=== PATIENT | male | born 1985 | race Caucasian/White ===

== ENCOUNTER 2019-02-02 16:39 | Emergency (ER) | payer OTHER ==
[~2019-02-02] VITALS: Ht 170.2 cm; Wt 90.7 kg
[2019-02-02 18:00] VITALS: BP 138/78
[2019-02-02] MEDS ORDERED: NAPROXEN 500 MG TABLET PO STA (18:32)
--- NOTE | 2019-02-02 18:39 | PHYS DOC ---
Past Medical History Past Medical History: No Pertinent History Past Surgical History: No Surgical History Alcohol Use: None Drug Use: None Adult General Chief Complaint Chief Complaint: MECHANICAL FALL HPI HPI Patient is a 34 year old little who presents to the emergency department with complaints of left lateral ankle pain after sliding down a ladder approximately 14 steps earlier today. Patient reports swelling and pain with movement, or weight bearing. He states that the injury happened at approximately 10:00 this morning. Currently he rates his pain an 8 out of 10 on the pain scale, he has not taken anything for relief of this pain prior to arrival. The pain is exacerbated by movement, palpation, and weightbearing. Patient reports reduce pain and swelling with ice and elevation. Review of Systems Review of Systems Constitutional: Denies fever or chills [] Eyes: Denies changes HENT: Denies neck pain Musculoskeletal: Denies back pain; see history of present illness Integument: Denies rash or skin lesions [] Neurologic: Denies headache, focal weakness or sensory changes [] Current Medications Current Medications Current Medications Medications (Trade) Dose Ordered Sig/Charles Start Time Stop Time Status Last Admin Dose Admin Acetaminophen/ Hydrocodone Bitart (Lortab 5/325) 1 tab 1X ONCE 02/02/19 18:45 02/02/19 18:46 DC 02/02/19 18:46 1 TAB Naproxen (Naprosyn) 500 mg 1X STAT 02/02/19 18:32 02/02/19 18:35 DC 02/02/19 18:46 500 MG Allergies Allergies Allergies Coded Allergies Type Severity Reaction Last Updated Verified Penicillins Allergy Intermediate 09/25/15 No Physical Exam Physical Exam Constitutional: Well developed, well nourished, no acute distress, non-toxic appearance. [] HENT: Normocephalic, atraumatic, bilateral external ears normal, nose normal. [] Eyes: conjunctiva normal, no discharge. [] Neck: Normal range of motion, no stridor. [] Lungs & Thorax: Respirations even and unlabored, no retractions Skin: Warm, dry, no erythema, no rash. [] Extremities: No cyanosis, no clubbing: LLE: ROM intact, 2+ edema to the lateral ankle, left lateral ankle tenderness to palpation no crepitus or deformity Neurologic: Alert and oriented X 3, normal motor function, normal sensory function, no focal deficits noted. [] Psychologic: Affect normal, judgement normal, mood normal. [] Current Patient Data Vital Signs Vital Signs Date Time Temp Pulse Resp B/P (MAP) Pulse Ox O2 Delivery O2 Flow Rate FiO2 02/02/19 18:00 98.0 80 16 138/78 (98) Room Air 98.0 EKG EKG [] Radiology/Procedures Radiology/Procedures possible fx of distal fibula read by Dr. Ralph[] Course & Med Decision Making Course & Med Decision Making Pertinent Labs and Imaging studies reviewed. (See chart for details) Dx: distal fibula fx, left ankle injury Pt was placed in stirrup ankle splint and given crutches. Prescriptions written for hydrocodone 5/325 #12 and naproxen 500 mg 320. follow up with Dr. Quintero for further evaluation and tx. Return to the ER if sx worsen. [] Dragon Disclaimer Dragon Disclaimer This electronic medical record was generated, in whole or in part, using a voice recognition dictation system. Departure Departure Impression: Primary Impression: Injury of ankle, left Additional Impression: Fracture of fibula, distal, closed Disposition: 01 HOME, SELF-CARE Condition: STABLE Referrals: JIGNESH QUINTERO MD Patient Instructions: Fibular Fracture, Ankle, Adult, Treated with or without Immobilization Additional Instructions: Fill prescription(s) and use as directed. Recommend application of ice, elevation, and rest of affected extremity. Wear the splint that was placed until follow up appointment with DR. Quintero, call in the morning to schedule appointment. Return to the ER if your symptoms worsen. Scripts Naproxen (NAPROXEN) 500 Mg Tablet 500 MG PO BID for 10 Days, #20 TAB 0 Refills Prov: YEYO SPENCER HEALTH INFORMATION ASSISTANT 02/02/19 Hydrocodone Bit/Acetaminophen (HYDROCODONE-APAP 5-325 ) 1 Tab Tablet 1 TAB PO PRN Q6HRS PRN for PAIN for 3 Days, #12 TAB 0 Refills Prov: YEYO SPENCER HEALTH INFORMATION ASSISTANT 02/02/19 Splinting Splinting : Location: [facility] Hand-Made Type: orthoglass (stirrup) Pre-Proc Neuro Vasc Exam: normal Post-Proc Neuro Vasc Exam: normal, unchanged from pre-exam Progress no changes after splint application, cap refill < 2 seconds Problem Qualifiers Primary Impression: Injury of ankle, left Encounter type: initial encounter Qualified Codes: S99.912A - Unspecified injury of left ankle, initial encounter Additional Impression: Fracture of fibula, distal, closed Encounter type: initial encounter Fracture morphology: unspecified fracture morphology Laterality: left Qualified Codes: S82.832A - Other fracture of upper and lower end of left fibula, initial encounter for closed fracture YEYO SPENCER APRN Feb 02, 2019 18:39
[2019-02-02] MEDS ORDERED: HYDROcodone/APAP 5/325MG 1 TAB TABLET PO ONE (18:45)
[2019-02-02] MEDS ORDERED: HYDR-2761 PO (20:09)
[2019-02-02] MEDS ORDERED: NAPR-514 PO (20:09)
--- NOTE | 2019-02-03 01:03 | RAD ---
Indication:ER PATIENT. TRAUMA FALL TODAY. IMPACT TO LEFT ANKLE RESULTED DUE TO FALL FROM LADDER. LEFT ANKLE PAIN AND SWELLING. NO PRIORS TECHNIQUE: 3 views of the left ankle COMPARISON:None FINDINGS/ impression: No acute fracture or dislocation. Significant swelling is seen overlying the lateral malleolus. Ankle mortise is intact. Electronically signed by: Ken Kingsley DO (02/03/2019 12:59 AM) [facility]
== END 2019-02-02 20:30 | disposition home or self-care (01) ==
LOC: ER 16:39
DX: S82.832A Other fracture of upper and lower end of left fibula, initial encounter for closed fracture (principal); S99.912A Unspecified injury of left ankle, initial encounter; Z88.0 Allergy status to penicillin; W11.XXXA Fall on and from ladder, initial encounter; Y93.89 Activity, other specified; Y92.89 Other specified places as the place of occurrence of the external cause; Y99.8 Other external cause status
CPT/HCPCS: 29515; 73610; 99283-25